=== PATIENT | female | born 1980 | race African-American/Black ===

== ENCOUNTER 2024-10-29 18:55 | Emergency (ER) | payer OTHER ==
[2024-10-29] MEDS ORDERED: Ketorolac Tromethamine 30 MG (1 mL) VIAL ONE (19:25)
[2024-10-29] MEDS ORDERED: Boostrix 0.5 ML (Tdap) VIAL (>/=7 yrs of age) ONE (19:25)
== END 2024-10-29 19:50 | disposition home or self-care (01) ==
LOC: CSHERS 18:55
DX: S20.211A Contusion of right front wall of thorax, initial encounter (principal); S40.021A Contusion of right upper arm, initial encounter; S70.312A Abrasion, left thigh, initial encounter; Z23 Encounter for immunization; V43.62XA Car passenger injured in collision with other type car in traffic accident, initial encounter
CPT/HCPCS: 90471; 90715; 96372; J1885